=== PATIENT | female | born 1980 | race Two or more races ===

== ENCOUNTER 2018-12-31 12:01 | Emergency (ER) | payer MEDICAID, OTHER ==
[~2018-12-31] VITALS: Ht 160 cm; Wt 68.0 kg
[2018-12-31 12:25] VITALS: BP 138/93
[2018-12-31] MEDS ORDERED: ACETAMINOPHEN 325 MG TAB PO ONE (13:45)
== END 2018-12-31 14:10 | disposition home or self-care (01) ==
LOC: ER 12:05
DX: L02.01 Cutaneous abscess of face (principal); F12.10 Cannabis abuse, uncomplicated; Z88.0 Allergy status to penicillin